=== PATIENT | female | born 1995 | race Caucasian/White ===

== ENCOUNTER 2017-03-28 17:17 | Emergency (ER) | payer OTHER ==
[~2017-03-28 17:17] MED LIST: FLEXERIL PO; NAPROSYN-EC500 MG PO
== END 2017-03-28 17:59 | disposition home or self-care (01) ==
LOC: SED 17:17
DX: L02.416 Cutaneous abscess of left lower limb (principal); L03.116 Cellulitis of left lower limb
CPT/HCPCS: 87070; 87077; 87186; 87205; 99283